=== PATIENT | male | born 1960 | race Caucasian/White ===

== ENCOUNTER 2021-01-02 21:09 | Emergency (ER) | payer OTHER ==
[~2021-01-02 21:09] MED LIST: AUGMENTIN 875-1 EACH PO
[2021-01-04] MEDS ORDERED: FAMOTIDINE40 MG PO (14:47)
[2021-01-04] MEDS ORDERED: LOPRESSOR 50 MG50 MG PO (14:48)
[2021-01-04] MEDS ORDERED: FLOMAX 0.4 MG0.4 MG PO (14:48)
[2021-01-04] MEDS ORDERED: GABAPENTIN300 MG PO (14:52)
[2021-01-04] MEDS ORDERED: BENADRYL25 MG PO (14:52)
[2021-01-04] MEDS ORDERED: HYDROCODON-ACE1 EAC2 PO (14:52)
[2021-01-04] MEDS ORDERED: ASPIRIN EC81 MG PO (14:53)
[2021-01-04] MEDS ORDERED: ATORVASTATIN CA40 MG PO (14:54)
[2021-01-04] MEDS ORDERED: DULOXETINE HCL60 MG PO (14:54)
[2021-01-04] MEDS ORDERED: FLONASE 0.05% N16 GM (14:55)
[2021-01-04] MEDS ORDERED: LEVOCETIRIZINE D5 MG PO (14:55)
[2021-01-04] MEDS ORDERED: NITROSTAT 0.40.4 MG SL (14:57)
[2021-01-09] MEDS ORDERED: ELIQUIS2.5 MG PO (10:10)
[2021-01-09] MEDS ORDERED: DEXAMETHASONE6 MG PO (10:10)
[2021-01-09] MEDS ORDERED: AUGMENTIN 875-1 EACH PO (10:10)
[2021-01-09] MEDS ORDERED: BUDESONIDE0.5 MG/2 M NEB (10:10)
[2021-01-09] MEDS ORDERED: BENZONATATE100 MG PO (10:10)
[2021-01-09] MEDS ORDERED: IPRAT-ALBUT 0.5-3 ML NEB (10:10)
[2021-01-09] MEDS ORDERED: PROTONIX 40 MG40 M1 PO (10:10)
== END 2021-01-03 02:20 | disposition home or self-care (01) ==
LOC: ER1 21:09
DX: U07.1 COVID-19 (principal); I25.10 Atherosclerotic heart disease of native coronary artery without angina pectoris; E78.5 Hyperlipidemia, unspecified; I10 Essential (primary) hypertension; I25.2 Old myocardial infarction; Z88.7 Allergy status to serum and vaccine
CPT/HCPCS: 99284

== ENCOUNTER 2021-01-03 17:45 | Emergency (ER) | payer MEDICARE ==
[2021-01-03 18:43] LABS: HEMOGLOBIN 14.5 gm/dl (14.0-17.5); RED BLOOD COUNT 4.88 M/UL (4.20-5.50); WHITE BLOOD COUNT 5.6 K/UL (4.5-11.0)
[2021-01-03 18:55] LABS: BUN/CREATININE RATIO 16 (0-10)
[2021-01-04] MEDS ORDERED: FAMOTIDINE40 MG PO (14:47)
[2021-01-04] MEDS ORDERED: FLOMAX 0.4 MG0.4 MG PO (14:48)
[2021-01-04] MEDS ORDERED: LOPRESSOR 50 MG50 MG PO (14:48)
[2021-01-04] MEDS ORDERED: BENADRYL25 MG PO (14:52)
[2021-01-04] MEDS ORDERED: GABAPENTIN300 MG PO (14:52)
[2021-01-04] MEDS ORDERED: HYDROCODON-ACE1 EAC2 PO (14:52)
[2021-01-04] MEDS ORDERED: ASPIRIN EC81 MG PO (14:53)
[2021-01-04] MEDS ORDERED: DULOXETINE HCL60 MG PO (14:54)
[2021-01-04] MEDS ORDERED: ATORVASTATIN CA40 MG PO (14:54)
[2021-01-04] MEDS ORDERED: LEVOCETIRIZINE D5 MG PO (14:55)
[2021-01-04] MEDS ORDERED: FLONASE 0.05% N16 GM (14:55)
[2021-01-04] MEDS ORDERED: NITROSTAT 0.40.4 MG SL (14:57)
[2021-01-09] MEDS ORDERED: AUGMENTIN 875-1 EACH PO (10:10)
[2021-01-09] MEDS ORDERED: PROTONIX 40 MG40 M1 PO (10:10)
[2021-01-09] MEDS ORDERED: DEXAMETHASONE6 MG PO (10:10)
[2021-01-09] MEDS ORDERED: ELIQUIS2.5 MG PO (10:10)
[2021-01-09] MEDS ORDERED: BENZONATATE100 MG PO (10:10)
[2021-01-09] MEDS ORDERED: BUDESONIDE0.5 MG/2 M NEB (10:10)
[2021-01-09] MEDS ORDERED: IPRAT-ALBUT 0.5-3 ML NEB (10:10)
== END 2021-01-03 22:15 | disposition home or self-care (01) ==
LOC: ER1 17:45
PROVIDERS: Physician Assistant
DX: Z23 Encounter for immunization (principal); U07.1 COVID-19; E87.5 Hyperkalemia; I10 Essential (primary) hypertension; Z88.7 Allergy status to serum and vaccine; Z79.899 Other long term (current) drug therapy
CPT/HCPCS: 71045; 80053; 85025; 99283; J7030; M0245

== ENCOUNTER 2021-01-04 09:53 | Inpatient (IN) | payer OTHER ==
[~2021-01-04] VITALS: Ht 182.9 cm; Wt 122.6 kg
[2021-01-04 11:53] LABS: RED BLOOD COUNT 4.65 M/UL (4.20-5.50)
[2021-01-04 12:09] LABS: BUN/CREATININE RATIO 16 (0-10)
[2021-01-04 12:10] LABS: WHITE BLOOD COUNT 8.3 K/UL (4.5-11.0)
[2021-01-04] MEDS ORDERED: FAMOTIDINE40 MG PO (14:47)
[2021-01-04] MEDS ORDERED: FLOMAX 0.4 MG0.4 MG PO (14:48)
[2021-01-04] MEDS ORDERED: LOPRESSOR 50 MG50 MG PO (14:48)
[2021-01-04] MEDS ORDERED: HYDROCODON-ACE1 EAC2 PO (14:52)
[2021-01-04] MEDS ORDERED: GABAPENTIN300 MG PO (14:52)
[2021-01-04] MEDS ORDERED: BENADRYL25 MG PO (14:52)
[2021-01-04] MEDS ORDERED: ASPIRIN EC81 MG PO (14:53)
[2021-01-04] MEDS ORDERED: DULOXETINE HCL60 MG PO (14:54)
[2021-01-04] MEDS ORDERED: ATORVASTATIN CA40 MG PO (14:54)
[2021-01-04] MEDS ORDERED: FLONASE 0.05% N16 GM (14:55)
[2021-01-04] MEDS ORDERED: LEVOCETIRIZINE D5 MG PO (14:55)
[2021-01-04] MEDS ORDERED: NITROSTAT 0.40.4 MG SL (14:57)
[2021-01-05 02:45] LABS: HEMOGLOBIN 13.8 gm/dl (14.0-17.5); RED BLOOD COUNT 4.63 M/UL (4.20-5.50)
[2021-01-05 03:03] LABS: BUN/CREATININE RATIO 18 (0-10)
[2021-01-05 14:33] LABS: ACINETOBACTER BAUMANNII Not Detected (Negative); CANDIDA ALBICANS Not Detected (Negative); CANDIDA KRUSEI Not Detected (Negative); CANDIDA TROPICALIS Not Detected (Negative); ENTEROCOCCUS Not Detected (Negative); ESCHERICHIA COLI Not Detected (Negative); HAEMOPHILUS INFLUENZAE Not Detected (Negative); KLEBSIELLA OXYTOCA Not Detected (Negative); KLEBSIELLA PNEUMONIAE Not Detected (Negative); KPC-CARBAPENEM-RESISTANCE GENE Not Detected (Negative); PROTEUS Not Detected (Negative); PSEUDOMONAS AERUGINOSA Not Detected (Negative); SERRATIA MARCESANS Not Detected (Negative); STAPHYLOCOCCUS AUREUS Not Detected (Negative); STREP AGALACTIAE (GROUP B) Not Detected (Negative); STREP PYOGENES (GROUP A) Not Detected (Negative); STREPTOCOCCUS Not Detected (Negative); mecA (METHICILLIN RESIST GENE Not Detected (Negative); vanA/B (VANCOMYCIN RESIST GENE Not Detected (Negative)
[2021-01-05 15:53] LABS: STAPHYLOCOCCUS DETECTED (Negative)
[2021-01-06 05:36] LABS: RED BLOOD COUNT 4.66 M/UL (4.20-5.50)
[2021-01-06 05:38] LABS: WHITE BLOOD COUNT 13.3 K/UL (4.5-11.0)
[2021-01-06 05:54] LABS: BUN/CREATININE RATIO 23 (0-10)
[2021-01-07 04:18] LABS: HEMOGLOBIN 13.1 gm/dl (14.0-17.5); RED BLOOD COUNT 4.43 M/UL (4.20-5.50); WHITE BLOOD COUNT 12.6 K/UL (4.5-11.0)
[2021-01-07 04:57] LABS: BUN/CREATININE RATIO 26 (0-10)
--- NOTE | 2021-01-07 22:30 | NUR ---
PATIENT'S , SHERRIE, ARRIVED AT APPROXIMATELY 2030 WITH INTENT TO GIVE PATIENT A BATH. PROVIDED HER WITH BASIN OF HOT SOAPY WATER AFTER PATIENT WALKED TO BATHROOM WITH 5L O2 AND TOLERATED WELL. GAVE PATIENT A BATH WHILE ON TOILET; DURING THIS TIME, RN AND AID CHANGED LINENS, EMPTIED TRASH AND REMOVED USED LINENS FROM ROOM. PATIENT TOLERATED AMBULATING BACK TO BED WELL, SAT IN CHAIR FOR 30 MINS THEN WENT BACK TO BED. PATIENT STATED HE FELT MUCH BETTER.
[2021-01-08 04:55] LABS: BUN/CREATININE RATIO 27 (0-10)
[2021-01-09 03:42] LABS: HEMOGLOBIN 14.5 gm/dl (14.0-17.5); WHITE BLOOD COUNT 10.5 K/UL (4.5-11.0)
[2021-01-09 03:44] LABS: RED BLOOD COUNT 4.88 M/UL (4.20-5.50)
[2021-01-09 04:06] LABS: BUN/CREATININE RATIO 30 (0-10)
--- NOTE | 2021-01-09 06:23 | NUR ---
ADMINISTERED APPROX HALF AM VANC DOSE PER PHARMACY R/T TROUGH
[2021-01-09] MEDS ORDERED: BUDESONIDE0.5 MG/2 M NEB (10:10)
[2021-01-09] MEDS ORDERED: PROTONIX 40 MG40 M1 PO (10:10)
[2021-01-09] MEDS ORDERED: ELIQUIS2.5 MG PO (10:10)
[2021-01-09] MEDS ORDERED: BENZONATATE100 MG PO (10:10)
[2021-01-09] MEDS ORDERED: IPRAT-ALBUT 0.5-3 ML NEB (10:10)
[2021-01-09] MEDS ORDERED: AUGMENTIN 875-1 EACH PO (10:10)
[2021-01-09] MEDS ORDERED: DEXAMETHASONE6 MG PO (10:10)
== END 2021-01-09 14:02 | disposition home or self-care (01) | DRG 177 ==
LOC: ER1 09:53 → PROG CARE 16:32 → CDU 16:32 → PROG CARE 17:10
PROVIDERS: Physician Assistant; ADMIT Internal Medicine
PROC: XW033E5 Introduction of Remdesivir Anti-infective into Peripheral Vein, Percutaneous Approach, New Technology Group 5 (ICD-10-PCS; principal; 2021-01-04)
PROC: 3E0333Z Introduction of Anti-inflammatory into Peripheral Vein, Percutaneous Approach (ICD-10-PCS; 2021-01-04)
PROC: 8E0ZXY6 Isolation (ICD-10-PCS; 2021-01-04)
PROC: XW033H5 Introduction of Tocilizumab into Peripheral Vein, Percutaneous Approach, New Technology Group 5 (ICD-10-PCS; 2021-01-04)
PROC: 5A0945A Assistance with Respiratory Ventilation, 24-96 Consecutive Hours, High Flow/Velocity Cannula (ICD-10-PCS; 2021-01-04)
DX: U07.1 COVID-19 (principal); J12.82 Pneumonia due to coronavirus disease 2019; J96.01 Acute respiratory failure with hypoxia; N17.9 Acute kidney failure, unspecified; I25.10 Atherosclerotic heart disease of native coronary artery without angina pectoris; I10 Essential (primary) hypertension; E78.5 Hyperlipidemia, unspecified; G62.9 Polyneuropathy, unspecified; E66.9 Obesity, unspecified; Z68.33 Body mass index [BMI] 33.0-33.9, adult; Z88.7 Allergy status to serum and vaccine
CPT/HCPCS: 36415; 36600; 71045; 80048; 80053; 80202; 82550; 82553; 82728; 82803; 82962; 83605; 83615; 83874; 84484; 85025; 85379; 85610; 86140; 87040; 87150; 87186; 93005; 94640; 94664; 94760; 96374; 97116-GP-CQ; 97162; 99283; 99284; 99285; J0696; J1100; J1650; J1940; J2185; J3370; J7030; J7070; M0245; U0002

== ENCOUNTER → 2022-01-08 | Outpatient (CLI) | payer OTHER ==
[~2022-01-08] MED LIST changes: +ASPIRIN EC81 MG PO; +ATORVASTATIN CA40 MG PO; +BENADRYL25 MG PO; +BENZONATATE100 MG PO; +BUDESONIDE0.5 MG/2 M NEB; +DEXAMETHASONE6 MG PO; +DULOXETINE HCL60 MG PO; +ELIQUIS2.5 MG PO; +FAMOTIDINE40 MG PO; +FLOMAX 0.4 MG0.4 MG PO; +FLONASE 0.05% N16 GM; +GABAPENTIN300 MG PO; +HYDROCODON-ACE1 EAC2 PO; +IPRAT-ALBUT 0.5-3 ML NEB; +LEVOCETIRIZINE D5 MG PO; +LOPRESSOR 50 MG50 MG PO; +NITROSTAT 0.40.4 MG SL; +PROTONIX 40 MG40 M1 PO
== END ==
LOC: US 08:40
DX: I73.9 Peripheral vascular disease, unspecified (principal); I75.023 Atheroembolism of bilateral lower extremities
CPT/HCPCS: 93925